=== PATIENT | male | born 1970 | race Caucasian/White ===

== ENCOUNTER 2021-01-25 05:19 | Emergency (ER) | payer BC, OTHER, SELFPAY ==
[2021-01-25 05:24] VITALS: BP 162/102; PULSE 85; RESP 20; TEMP 36.6; O2SAT 99
--- NOTE | 2021-01-25 05:31 | ED.WOUNDLAC ---
HPI - Wound/Laceration General Chief Complaint: Wound/Laceration Stated Complaint: Finger Lac Time Seen by Provider: 01/25/21 05:31 Source: patient Mode of arrival: ambulatory Limitations: no limitations History of Present Illness HPI narrative: Patient is a 50-year-old male presenting for evaluation of left third finger laceration. Patient states that he ripped his finger on a zip tie. Patient is not up-to-date on his tetanus. He is right-hand dominant. He denies numbness or weakness. No difficulty with movement. Minimal active bleeding.No significant pain. Related Data Allergies Allergy/AdvReac Type Severity Reaction Status Date / Time No Known Allergies Allergy Unverified 11/17/20 09:09 Review of Systems Review of Systems: CONSTITUTIONAL: Denies fever CARDIOVASCULAR: Denies chest pain RESPIRATORY: Denies cough or dyspnea. GASTROINTESTINAL: Denies abdominal pain SKIN: Denies rash, reports finger laceration MUSCULOSKELETAL: Denies back pain NEUROLOGIC: Denies headache [facility] Social History Social History (Updated 01/25/21 @ 05:40 by Roxane Thao MD) Smoking status: Current every day smoker Tobacco type: cigarettes Exam Narrative: GENERAL: Awake, alert, conversant HEAD: Normocephalic, atraumatic. EYES: PERRLA and EOMI. ENT: Nares clear, no rhinorrhea or epistaxis. Mucous membranes moist. NECK: Supple. CHEST: No respiratory distress, breathing even and non labored HEART: Regular rate, sinus rhythm ABDOMEN:Non distended, non tender EXTREMITIES: Normal range of motion. No edema. Radial pulses 2+. 1 cm linear laceration to the third digit, proximal phalynx. No foreign body. Intact sensation m/u/r nerve. SKIN: Warm, dry, no rash. NEURO:No focal deficits. Alert and oriented x3 Course Vital Signs Vital signs: Vital Signs Temperature 36.6 C 01/25/21 05:24 Pulse Rate 85 01/25/21 05:24 Respiratory Rate 20 01/25/21 05:24 Blood Pressure 162/102 H 01/25/21 05:24 Pulse Oximetry 99 01/25/21 05:24 Temperature 37.2 C 01/25/21 05:33 Pulse Rate 67 01/25/21 05:33 Respiratory Rate 16 01/25/21 05:33 Blood Pressure 165/102 H 01/25/21 05:33 Pulse Oximetry 100 01/25/21 05:33 Procedures Laceration Laceration 1: Date: 01/25/21 Time: 05:41 Site: other (finger, third digit, left hand) Side (If applicable): left Size (cm): 1 Description: linear Depth: simple, single layer Local Anesthetic: lidocaine 1% Amount of anesthesia used (mL): 3 Pre-repair: wound explored and irrigated ====== Skin Level ====== Skin layer closed with: prolene Size (cm): 5-0 Number of sutures: 3 Technique: simple, interrupted ====== Subcutaneous Layer ====== ====== Muscle Layer ====== ====== Tendon Layer ====== MDM - Wound/Laceration MDM Narrative Medical decision making narrative: Patient with laceration to left third digit. Pt is neurovascularly intact. No foreign body. No tendon injury. Pt with normal ROM thus bony injury seems unlikely. Finger laceration irrigated. Sutured closed. Pt given wound care instructions, and he was discharged home in stable condition. Differential Diagnosis Differential diagnosis: Likely laceration and avulsion of skin Medical Records Attestation: I reviewed the patient's medical records. Discharge Plan Discharge Clinical Impression: Laceration, Hypertension Patient Disposition: Home, Self-Care Condition: Stable Instructions: Finger Laceration (ED), Hypertension (ED) Additional Instructions: Please keep your wound clean and dry. Please do not soak it in any water. You may wash with antibacterial soap and pat it to dry. Please do not scrub the wound. Please speak with your doctor about your elevated blood pressure. Please monitor for signs of infection. Signs of infection including redness, purulent drainage from the site, worsening pain.
[2021-01-25 05:33] VITALS: BP 165/102; PULSE 67; RESP 16; TEMP 37.2; O2SAT 100
[2021-01-25] MEDS: TETANUS,DIPHTHERIA,AC PERTUSSIS ADULT (0.5 ML) BOOSTRIX IM (05:46)
== END 2021-01-25 06:47 | disposition home or self-care (01) ==
PROVIDERS: Emergency Provider Emergency Medicine
DX: S61.213A Laceration without foreign body of left middle finger without damage to nail, initial encounter (principal); I10 Essential (primary) hypertension; Z23 Encounter for immunization; W45.8XXA Other foreign body or object entering through skin, initial encounter
CPT/HCPCS: 12001; 90471; 90715; 99282

== ENCOUNTER 2025-04-19 10:50 | Outpatient (CLI) | payer BC, SELFPAY ==
--- NOTE | ~2025-04-19 | CT_ITS ---
CT lung screening INDICATION: Nicotine dependence, screening COMPARISON: None. TECHNIQUE: CT examination of the entire thorax without contrast was performed using low dose technique. Thin section axial, sagittal and coronal images were included to increase sensitivity for small lung nodules. FINDINGS: PULMONARY NODULES: No suspicious noncalcified pulmonary nodules. OTHER PULMONARY FINDINGS: No significant nonnodular pleural or parenchymal abnormality is noted. Mild emphysematous changes are present. No pathologically enlarged lymph nodes are present. Normal heart size. Within the limits of this nondedicated CT there are no coronary artery calcifications. UPPER ABDOMEN AND PERIPHERAL SOFT TISSUE: Limited views of the upper abdomen and peripheral soft tissue demonstrated no abnormalities. OSSEOUS STRUCTURES: Bone window shows no aggressive blastic or lytic lesions. IMPRESSION: 1. Lung-RADS category 1: No nodules or definitely benign nodules. Recommendations: 1 or 2: Annual screening with low-dose CT in 12 months. 2. No emphysematous changes are present. All CT scans at this facility are performed using low dose modulation techniques as appropriate to perform exam including the following: automated exposure control; use of iterative reconstruction technique; adjustment of the mA and/or kV according to patient size (this includes techniques or standardized protocols for targeted exams where dose is matched to indication/reason for exam). Reviewed, dictated and finalized at [facility] IMPRESSION: 1. Lung-RADS category 1: No nodules or definitely benign nodules. Recommendations: 1 or 2: Annual screening with low-dose CT in 12 months. 2. No emphysematous changes are present. All CT scans at this facility are performed using low dose modulation techniqu es as appropriate to perform exam including the following: automated exposure c ontrol; use of iterative reconstruction technique; adjustment of the mA and/or kV according to patient size (this includes techniques or standardized protocol s for targeted exams where dose is matched to indication/reason for exam).
== END 2025-04-19 10:51 | disposition home or self-care (01) ==
PROVIDERS: PCP Student in an Organized Health Care Education/Training Program; Visit Provider Student in an Organized Health Care Education/Training Program
DX: Z12.2 Encounter for screening for malignant neoplasm of respiratory organs (principal); Z87.891 Personal history of nicotine dependence
CPT/HCPCS: 71271